=== PATIENT | female | born 1965 | race Caucasian/White ===

== ENCOUNTER 2021-07-12 17:24 | Inpatient (IN) | payer OTHER ==
[~2021-07-12] VITALS: Ht 161.3 cm; Wt 77.4 kg
--- NOTE | 2021-07-12 18:04 | NUR ---
PT C/O OF FEVER/CHILLS, BODYACHES, DRY MOUTH, DIARRHEA DENIES N/V, CP, SOB ATTACHED TO CARD/SP02/BP MONITORS. VSS. NADN. BED IN LOW/ RAIOLS ENGAGED/ CALL LIGHT ON LAP. ERMD AT BEDSIDE FOR EVAL, XRAY OUTSIDE DOOR.
[2021-07-12 18:22] LABS: MEAN CORPUSCULAR HEMOGLOBIN 31.4 pg (27.0-34.8); MEAN CORPUSCULAR HGB CONC 32.6 g/dL (32.4-35.8); MEAN PLATELET VOLUME 8.8 fL (7.4-10.4); PLATELET COUNT 193 x10^3/uL (130-400); RED CELL DISTRIBUTION WIDTH 16.7 % (9.6-15.2)
[2021-07-12 18:31] LABS: ALBUMIN 3.6 g/dL (3.4-5.0); ANION GAP 8 mmol/L (5-15); CALCIUM 9.7 mg/dL (8.5-10.1); CHLORIDE 99 mmol/L (98-107)
[2021-07-12 18:34] LABS: ALANINE AMINOTRANSFERASE 36 U/L (12-78); ALKALINE PHOSPHATASE 91 U/L (45-117); BILIRUBIN,TOTAL 0.7 mg/dL (0.2-1.0); CREATININE 1.04 mg/dL (0.55-1.02); TOTAL PROTEIN 7.8 g/dL (6.4-8.2)
--- NOTE | 2021-07-12 18:50 | NUR ---
LEFT SIDED CHEST IMPLANTED PORT ACCESSED. PT TOLERATED WELL.
--- NOTE | 2021-07-12 18:52 | NUR ---
PT RESTING ON GURNEY RESP EVEN AND UNLABORED NADN, VSS NO NEEDS AT THIS TIME.
[2021-07-12 18:59] LABS: MICROSCOPIC AUTO
[2021-07-12 19:14] LABS: BAND#(MANUAL) 2.54 x10^3/uL; BANDS%(MANUAL) 20 % (0-7); LYMPH#(MANUAL) 0.76 x10^3/uL (1-3.4); LYMPHS% (MANUAL) 6 % (22-44); MONOS#(MANUAL) 0.64 x10^3/uL (0.3-2.7); MONOS% (MANUAL) 5 % (2-9); SEG#(MANUAL) 8.76 x10^3/uL (1.8-6.8); SEGS% (MANUAL) 69 % (42-75)
[2021-07-12 19:16] LABS: <PLATELET ESTIMATE> ADEQUATE; <PLT MORPHOLOGY> NORMAL PLT MORPH; <RBC MORPHOLOGY> NORMAL
[2021-07-12] MEDS ORDERED: SODIUM CHLORIDE 0.9% 1,000ML IVBOLUS ONE (19:30)
[2021-07-12] MEDS ORDERED: LEVO300T2 PO (20:01)
[2021-07-12] MEDS ORDERED: [UNRECOGNIZED DRUG - OTHER] (20:01)
[2021-07-12] MEDS ORDERED: OMEP-110 PO (20:01)
[2021-07-12] MEDS ORDERED: EMPA10TA PO (20:01)
[2021-07-12] MEDS ORDERED: DEPRESSION MED (20:01)
--- NOTE | 2021-07-12 20:07 | NUR ---
CHARGING PT PHONE SO SHE CAN SPEAK TO . NO EMERGENCY CONTACT AND PT CANNOT REMEMBER NUMBER.
[2021-07-12] MEDS ORDERED: ACETAMINOPHEN 500 MG TABLET ONE (20:20)
[2021-07-12] MEDS ORDERED: ACETAMINOPHEN 500 MG TABLET PO ONE (20:30)
[2021-07-12] MEDS ORDERED: CEFTRIAXONE 1,000 MG in DEXTROSE 5% 50 ML IVPB ONE (20:30)
--- NOTE | 2021-07-12 21:20 | NUR ---
SPOKE TO PT OVER PHONE.
[2021-07-12] MEDS ORDERED: HEPARIN 5,000 UNITS/ML, 1ML ONE (22:44)
--- NOTE | 2021-07-12 22:54 | NUR ---
GAVE REPORT TO TIM FONTAINE.
[2021-07-12] MEDS: HEPARIN 5,000 UNITS/ML, 1ML SQ SCH (22:59)
[2021-07-12] MEDS ORDERED: ONDANSETRON 2MG/ML, 2ML IVPush PRN (23:00)
[2021-07-12] MEDS ORDERED: LABETALOL 5MG/ML, 20ML IVPush PRN (23:00)
[2021-07-12] MEDS: LACTATED RINGERS 1,000 ML IV SCH (23:00)
[2021-07-12] MEDS ORDERED: MELATONIN 5 MG TABLET PO PRN (23:00)
--- NOTE | 2021-07-12 23:08 | NUR ---
DIRECTOR OF UNDERGRADUATE ADMISSIONS AT BEDSIDE
[2021-07-12 23:39] VITALS: BP 94/60
[2021-07-13] MEDS ORDERED: AZITHROMYCIN 500 MG in SODIUM CHLORIDE 0.9% 250 ML IV SCH
[2021-07-13 01:14] LABS: MEAN CORPUSCULAR HEMOGLOBIN 31.2 pg (27.0-34.8); MEAN PLATELET VOLUME 9.2 fL (7.4-10.4); PLATELET COUNT 147 x10^3/uL (130-400); RED BLOOD COUNT 3.03 x10^6/uL (3.82-5.3); RED CELL DISTRIBUTION WIDTH 16.3 % (9.6-15.2)
[2021-07-13 01:38] LABS: BAND#(MANUAL) 1.26 x10^3/uL; BANDS%(MANUAL) 13 % (0-7); EOS% (MANUAL) 1 % (1-7); LYMPH#(MANUAL) 0.97 x10^3/uL (1-3.4); LYMPHS% (MANUAL) 10 % (22-44); MONOS#(MANUAL) 0.39 x10^3/uL (0.3-2.7); MONOS% (MANUAL) 4 % (2-9); SEG#(MANUAL) 6.98 x10^3/uL (1.8-6.8); SEGS% (MANUAL) 72 % (42-75)
[2021-07-13 01:39] LABS: ANISOCYTOSIS 1+; OVALOCYTES 1+; TEAR DROPS 1+
[2021-07-13 01:40] LABS: <PLATELET ESTIMATE> ADEQUATE; <PLT MORPHOLOGY> NORMAL PLT MORPH
[2021-07-13 03:53] VITALS: BP 101/62
[2021-07-13 04:43] LABS: CHLORIDE 105 mmol/L (98-107)
[2021-07-13 04:57] LABS: ALANINE AMINOTRANSFERASE 22 U/L (12-78); ALBUMIN 2.6 g/dL (3.4-5.0); ALKALINE PHOSPHATASE 71 U/L (45-117); ANION GAP 7 mmol/L (5-15); BILIRUBIN,TOTAL 0.5 mg/dL (0.2-1.0); CALCIUM 8.6 mg/dL (8.5-10.1); CREATININE 0.73 mg/dL (0.55-1.02); TOTAL PROTEIN 6.1 g/dL (6.4-8.2)
[2021-07-13 08:13] VITALS: BP 113/70
[2021-07-13] MEDS: HEPARIN 5,000 UNITS/ML, 1ML SQ SCH ×3 (09:36→23:23)
[2021-07-13] MEDS ORDERED: VANCOMYCIN PER PHARMACY MC PRN (12:30)
[2021-07-13 12:37] VITALS: BP 118/76
[2021-07-13] MEDS: ACETAMINOPHEN 325 MG TABLET PO PRN ×2 (12:40→19:46)
[2021-07-13] MEDS ORDERED: VANCOMYCIN 1,800 MG in SODIUM CHLORIDE 0.9% 250 ML IV ONE (13:00)
[2021-07-13] MEDS ORDERED: PHARMACOKINETIC CONSULTATION MC ONE (13:00)
[2021-07-13] MEDS ORDERED: PHARMACOKINETIC MONITORING MC PRN (13:00)
[2021-07-13] MEDS: LACTATED RINGERS 1,000 ML IV SCH ×2 (13:53→23:23)
[2021-07-13] MEDS ORDERED: OMNIPAQUE 350 MG/ML, 75ML BOTTLE ONE (14:40)
[2021-07-13 19:41] VITALS: BP 115/76
[2021-07-13] MEDS: CEFTRIAXONE 1,000 MG in DEXTROSE 5% 50 ML IVPB SCH (19:46)
[2021-07-13] MEDS: VANCOMYCIN 1,400 MG in SODIUM CHLORIDE 0.9% 250 ML IV SCH (23:23)
[2021-07-14 01:58] VITALS: BP 110/73
[2021-07-14] MEDS: HEPARIN 5,000 UNITS/ML, 1ML SQ SCH (05:58)
[2021-07-14 06:17] LABS: BASOPHILS % (AUTO) 1 % (0-1); EOSINOPHILS % (AUTO) 1 % (1-7); LYMPHOCYTES % (AUTO) 10 % (22-44); MEAN CORPUSCULAR HEMOGLOBIN 31.7 pg (27.0-34.8); MEAN CORPUSCULAR HGB CONC 32.9 g/dL (32.4-35.8); MEAN PLATELET VOLUME 9.8 fL (7.4-10.4); MONOCYTES % (AUTO) 6 % (2-9); NEUTROPHILS % (AUTO) 83 % (42-75); PLATELET COUNT 81 x10^3/uL (130-400); RED BLOOD COUNT 3.08 x10^6/uL (3.82-5.3); RED CELL DISTRIBUTION WIDTH 16.6 % (9.6-15.2)
[2021-07-14 06:51] LABS: ANION GAP 7 mmol/L (5-15); CALCIUM 8.6 mg/dL (8.5-10.1); CHLORIDE 107 mmol/L (98-107); CREATININE 0.67 mg/dL (0.55-1.02)
[2021-07-14] MEDS: ACETAMINOPHEN 325 MG TABLET PO PRN ×3 (07:30→23:38)
[2021-07-14] MEDS: LACTATED RINGERS 1,000 ML IV SCH ×2 (07:31→20:51)
[2021-07-14 07:34] VITALS: BP 120/72
[2021-07-14] MEDS ORDERED: MAGNESIUM SULFATE PMX 2GM/50ML 50 ML IV ONE (08:00)
[2021-07-14] MEDS: VANCOMYCIN 1,400 MG in SODIUM CHLORIDE 0.9% 250 ML IV SCH ×2 (10:46→22:15)
[2021-07-14 14:10] VITALS: BP 133/81
[2021-07-14] MEDS ORDERED: METHOCARBAMOL 1,000 MG in DEXTROSE 5% 100 ML IV PRN (16:00)
[2021-07-14] MEDS ORDERED: ACETAMINOPHEN 325 MG TABLET PO PRN (16:00)
[2021-07-14] MEDS ORDERED: ONDANSETRON 2MG/ML, 2ML IVPush PRN (16:00)
[2021-07-14] MEDS ORDERED: FENTANYL PF 100 MCG/2ML IV PRN (16:00)
[2021-07-14] MEDS ORDERED: OXYcodone 5 MG/5 ML ORAL.SOL UDC PO PRN (16:00)
[2021-07-14] MEDS ORDERED: METOPROLOL 1 MG/ML, 5ML IV PRN (16:00)
[2021-07-14] MEDS ORDERED: hydrALAzine 20 MG/ML, 1ML IV PRN (16:00)
[2021-07-14] MEDS ORDERED: LORazepam 2 MG/ML, 1ML IVPush PRN (16:00)
[2021-07-14] MEDS ORDERED: HYDROmorphone 1 MG/ML, 1ML INJ IVPush PRN (16:00)
[2021-07-14] MEDS ORDERED: LABETALOL 5MG/ML, 20ML IV PRN (16:00)
[2021-07-14] MEDS ORDERED: PROMETHAZINE 25 MG/ML, 1ML IVPush PRN (16:00)
[2021-07-14] MEDS ORDERED: PROMETHAZINE 25 MG SUPP PR PRN (16:00)
[2021-07-14] MEDS ORDERED: HALOPERIDOL 5 MG/ML IV PRN (16:00)
[2021-07-14] MEDS ORDERED: MIDAZOLAM 1 MG/ML, 5ML ONE (16:04)
[2021-07-14] MEDS ORDERED: FENTANYL PF 100 MCG/2ML ONE (16:04)
[2021-07-14] MEDS ORDERED: DEXAMETHASONE 4 MG/ML, 1ML ONE (16:04)
[2021-07-14] MEDS ORDERED: ONDANSETRON 2MG/ML, 2ML ONE (16:04)
[2021-07-14] MEDS ORDERED: PROPOFOL 10 MG/ML, 20ML ONE (16:04)
[2021-07-14] MEDS ORDERED: LIDOCAINE 1%, 20ML ONE (16:04)
[2021-07-14] MEDS ORDERED: BUPIVACAINE/PF-EPI 0.5% 1:200K INFIL ONE (16:50)
[2021-07-14] MEDS ORDERED: OXYcodone 5 MG/5 ML ORAL.SOL UDC ONE (17:19)
[2021-07-14 20:00] VITALS: BP 100/65
[2021-07-14] MEDS: CEFTRIAXONE 1,000 MG in DEXTROSE 5% 50 ML IVPB SCH (20:50)
[2021-07-15 00:37] VITALS: BP 106/70
[2021-07-15] MEDS: LACTATED RINGERS 1,000 ML IV SCH (04:54)
[2021-07-15 06:12] LABS: BASOPHILS % (AUTO) 1 % (0-1); EOSINOPHILS % (AUTO) 2 % (1-7); LYMPHOCYTES % (AUTO) 12 % (22-44); MEAN CORPUSCULAR HEMOGLOBIN 31.4 pg (27.0-34.8); MEAN CORPUSCULAR HGB CONC 32.6 g/dL (32.4-35.8); MEAN PLATELET VOLUME 7.9 fL (7.4-10.4); MONOCYTES % (AUTO) 7 % (2-9); NEUTROPHILS % (AUTO) 77 % (42-75); PLATELET COUNT 91 x10^3/uL (130-400); RED BLOOD COUNT 2.73 x10^6/uL (3.82-5.3); RED CELL DISTRIBUTION WIDTH 16.5 % (9.6-15.2)
[2021-07-15 06:22] LABS: ALBUMIN 1.9 g/dL (3.4-5.0); ANION GAP 4 mmol/L (5-15); CALCIUM 8.1 mg/dL (8.5-10.1); CHLORIDE 106 mmol/L (98-107)
[2021-07-15 06:25] LABS: ALANINE AMINOTRANSFERASE 28 U/L (12-78); ALKALINE PHOSPHATASE 89 U/L (45-117); BILIRUBIN,TOTAL 0.2 mg/dL (0.2-1.0); CREATININE 0.67 mg/dL (0.55-1.02); TOTAL PROTEIN 5.4 g/dL (6.4-8.2)
[2021-07-15 07:43] VITALS: BP 100/58
[2021-07-15] MEDS: VANCOMYCIN 1,400 MG in SODIUM CHLORIDE 0.9% 250 ML IV SCH ×3 (10:07→22:56)
[2021-07-15 14:04] VITALS: BP 99/58
[2021-07-15] MEDS ORDERED: FUROSEMIDE 40 MG/4 ML IV ONE (14:30)
[2021-07-15 16:23] LABS: HCT (SEDRATE) 28.1 % (34.6-47.8)
[2021-07-15 19:18] VITALS: BP 105/64
[2021-07-16 02:07] VITALS: BP 109/68
[2021-07-16 07:50] VITALS: BP 105/67
[2021-07-16] MEDS: FUROSEMIDE 40 MG/4 ML IV SCH (08:32)
[2021-07-16] MEDS ORDERED: FLUO40CA2 PO (10:07)
[2021-07-16] MEDS ORDERED: EZET10TA70 PO (10:07)
[2021-07-16] MEDS ORDERED: VALA500T8 PO (10:07)
[2021-07-16] MEDS: VANCOMYCIN 1,400 MG in SODIUM CHLORIDE 0.9% 250 ML IV SCH (10:19)
[2021-07-16] MEDS ORDERED: DAPTOMYCIN 300 MG in SODIUM CHLORIDE 0.9% 100 ML IV SCH (13:00)
[2021-07-16] MEDS: ACETAMINOPHEN 325 MG TABLET PO PRN (13:32)
[2021-07-16 13:52] VITALS: BP 124/76
[2021-07-16 18:21] VITALS: BP 123/71
[2021-07-17 01:18] VITALS: BP 116/65
[2021-07-17] MEDS ORDERED: DAPTOMYCIN 450 MG in SODIUM CHLORIDE 0.9% 100 ML IVPB SCH (08:00)
[2021-07-17] MEDS: FUROSEMIDE 40 MG/4 ML IV SCH (09:09)
[2021-07-17 10:05] LABS: ALBUMIN 2.3 g/dL (3.4-5.0); CALCIUM 8.8 mg/dL (8.5-10.1); CHLORIDE 104 mmol/L (98-107)
[2021-07-17 10:13] LABS: ALANINE AMINOTRANSFERASE 33 U/L (12-78); ALKALINE PHOSPHATASE 101 U/L (45-117); ANION GAP 5 mmol/L (5-15); BILIRUBIN,TOTAL 0.3 mg/dL (0.2-1.0); CREATININE 0.79 mg/dL (0.55-1.02); TOTAL PROTEIN 6.2 g/dL (6.4-8.2)
[2021-07-17 10:21] VITALS: BP 96/60
[2021-07-17] MEDS ORDERED: daptomycin (10:42)
[2021-07-17 12:05] LABS: BASOPHILS % (AUTO) 1 % (0-1); EOSINOPHILS % (AUTO) 4 % (1-7); LYMPHOCYTES % (AUTO) 13 % (22-44); MEAN CORPUSCULAR HEMOGLOBIN 30.9 pg (27.0-34.8); MEAN CORPUSCULAR HGB CONC 32.8 g/dL (32.4-35.8); MEAN PLATELET VOLUME 8.9 fL (7.4-10.4); MONOCYTES % (AUTO) 8 % (2-9); NEUTROPHILS % (AUTO) 75 % (42-75); PLATELET COUNT 249 x10^3/uL (130-400); RED BLOOD COUNT 3.36 x10^6/uL (3.82-5.3); RED CELL DISTRIBUTION WIDTH 16.6 % (9.6-15.2)
[2021-07-17 13:30] LABS: HCT (SEDRATE) 31.7 % (34.6-47.8)
[2021-07-17 14:27] VITALS: BP 106/69
== END 2021-07-17 16:17 | disposition home or self-care (01) | DRG 907 ==
LOC: ED 20:55 → EDIP 21:14 → 4WST 23:26
PROVIDERS: ADMIT Internal Medicine; ATTEND Hospitalist
PROC: 0HPT0NZ Removal of Tissue Expander from Right Breast, Open Approach (ICD-10-PCS; principal; 2021-07-14 16:00)
DX: T85.79XA Infection and inflammatory reaction due to other internal prosthetic devices, implants and grafts, initial encounter (principal); A41.9 Sepsis, unspecified organism; J96.01 Acute respiratory failure with hypoxia; L03.313 Cellulitis of chest wall; Z20.822 Contact with and (suspected) exposure to COVID-19; E03.9 Hypothyroidism, unspecified; E11.9 Type 2 diabetes mellitus without complications; F32.9 Major depressive disorder, single episode, unspecified; K21.9 Gastro-esophageal reflux disease without esophagitis; Y83.1 Surgical operation with implant of artificial internal device as the cause of abnormal reaction of the patient, or of later complication, without mention of misadventure at the time of the procedure; Z79.84 Long term (current) use of oral hypoglycemic drugs; Z98.82 Breast implant status; Z90.13 Acquired absence of bilateral breasts and nipples; Z85.72 Personal history of non-Hodgkin lymphomas; Z85.3 Personal history of malignant neoplasm of breast; Z88.5 Allergy status to narcotic agent; Z88.8 Allergy status to other drugs, medicaments and biological substances; Y92.89 Other specified places as the place of occurrence of the external cause
CPT/HCPCS: 36415; 84145; 96361; 96365; 99285; J3490; 71045; 71275; 80048; 80053; 80202; 81001; 82550; 82962; 83605; 83735; 83880; 84100; 84443; 85025; 85651; 86140; 87040; 87070; 87075; 87077; 87086; 87186; 87205; 93005; C1729; G0378; J0456; J0696; J0878; J1100; J1644; J1940; J2250; J2405; J2704; J3010; J3370; Q9967; U0005; J3475; J7030; J7050; J7120; U0003

== ENCOUNTER 2021-07-27 11:21 | Outpatient (CLI) | payer OTHER ==
[~2021-07-27 11:21] MED LIST: BUPIVACAINE/PF 0.5% ONE; DEPRESSION MED; EMPA10TA PO; EZET10TA70 PO; FENTANYL PF 100 MCG/2ML ONE; FLUO40CA2 PO; LEVO300T2 PO; MIDAZOLAM 1 MG/ML, 2ML ONE; OMEP-110 PO; PROPOFOL 100 ML ONE; VALA500T8 PO; [UNRECOGNIZED DRUG - OTHER]; daptomycin
== END 2021-07-27 23:59 | disposition home or self-care (01) ==
LOC: CVU 11:21
PROVIDERS: ATTEND Internal Medicine Hematology & Oncology
DX: C50.811 Malignant neoplasm of overlapping sites of right female breast (principal); I37.1 Nonrheumatic pulmonary valve insufficiency; E78.5 Hyperlipidemia, unspecified; E11.9 Type 2 diabetes mellitus without complications; Z92.21 Personal history of antineoplastic chemotherapy
CPT/HCPCS: 93306; J2250; J2704; J3010; S0020